=== PATIENT | female | born 1995 | race African-American/Black ===

== ENCOUNTER 2016-08-22 13:12 | Emergency (ER) | payer OTHER ==
[~2016-08-22] VITALS: Ht 154.9 cm; Wt 106.6 kg
[~2016-08-22 13:12] MED LIST: CIPROFLOXACIN500 M1 PO; CYCLOBENZAPRINE5 MG PO; NAPROSYN500 MG PO; NOHOMEMEDICATIONS; NORCO 5-325 TA1 EACH PO; PYRIDIUM200 MG PO
[2016-08-22 13:31] LABS: URINE BILIRUBIN NEGATIVE (Negative); URINE BLOOD NEGATIVE (Negative); URINE COLOR YELLOW; URINE GLUCOSE-RANDOM* NEGATIVE (Negative); URINE KETONES TRACE (Negative); URINE NITRITE NEGATIVE (Negative); URINE PROTEIN (DIPSTICK) NEGATIVE (Negative); URINE SPECIFIC GRAVITY >= 1.030 (1.003-1.035)
[2016-08-22 15:22] VITALS: BP 136/71
[2016-08-22] MEDS ORDERED: NAPROSYN500 M1 PO (15:37)
[2016-08-22] MEDS ORDERED: NORCO 5-325 TA1 EACH PO (15:52)
[2016-09-18] MEDS ORDERED: TESSALON PERLE100 MG PO (12:47)
[2016-09-18] MEDS ORDERED: ONDANSETRON HCL4 M2 PO (12:47)
[2016-09-18] MEDS ORDERED: IBUPROFEN 800800 M1 PO (12:47)
== END 2016-08-22 15:54 | disposition home or self-care (01) ==
LOC: ER 13:12
PROVIDERS: Physician Assistant
DX: N83.202 Unspecified ovarian cyst, left side (principal); F10.99 Alcohol use, unspecified with unspecified alcohol-induced disorder

== ENCOUNTER 2016-11-19 08:45 | Emergency (ER) | payer OTHER ==
[~2016-11-19] VITALS: Ht 180.3 cm; Wt 116.6 kg
[~2016-11-19 08:45] MED LIST changes: +IBUPROFEN 800800 M1 PO; +NAPROSYN500 M1 PO; +ONDANSETRON HCL4 M2 PO; +TESSALON PERLE100 MG PO
[2016-11-19 09:27] LABS: URINE BILIRUBIN NEGATIVE (Negative); URINE BLOOD TRACE (Negative); URINE COLOR YELLOW; URINE GLUCOSE-RANDOM* NEGATIVE (Negative); URINE KETONES NEGATIVE (Negative); URINE NITRITE NEGATIVE (Negative); URINE PROTEIN (DIPSTICK) TRACE (Negative); URINE SPECIFIC GRAVITY >= 1.030 (1.003-1.035)
[2016-11-19 09:36] LABS: SQUAMOUS >10 Many /LPF (0-3)
[2016-11-19 09:37] LABS: CASTS None Seen /LPF (None Seen); CRYSTALS None Seen /LPF (None Seen)
[2016-11-19 09:40] LABS: URINE RBC 3-10 Few /HPF (0-2)
[2016-11-19 09:40] LABS: ABSOLUTE NEUTROPHILS 4.7 thou/uL (1.4-8.2); BASOPHILS 0.8 % (0.0-2.0); EOSINOPHILS 2.4 % (0.0-3.0); HEMOGLOBIN 12.5 gm/dL (12.0-15.0); LYMPHOCYTES 29.3 % (24.0-44.0); MANUAL DIFF NO; MCH 30.5 pg (26.0-34.0); MCHC 34.9 g/dL (28.0-37.0); MCV 87.4 fL (80.0-100.0); MONOCYTES 7.4 % (1.0-8.0); PLATELET COUNT 192 thou/uL (150-400); POLYS 60.1 % (36.0-66.0); RBC 4.12 mil/uL (4.20-5.00); WBC 7.8 thou/uL (4.0-11.0)
[2016-11-19 09:55] LABS: ALBUMIN 3.2 g/dL (3.4-5.0); CALCIUM 8.7 mg/dL (8.5-10.1); CREATININE 0.8 mg/dL (0.6-1.0); DIRECT BILIRUBIN 0.1 mg/dL (<0.1-0.3); POTASSIUM 3.6 mmol/L (3.5-5.1); TOTAL BILIRUBIN 0.7 mg/dL (<0.1-1.0); TOTAL PROTEIN 6.7 g/dL (6.4-8.2)
[2016-11-19] MEDS ORDERED: IBUPROFEN 600600 M1 PO (11:53)
[2016-11-19] MEDS ORDERED: MACROBID 100 M100 M1 PO (13:08)
[2016-11-19] MEDS ORDERED: NAPROSYN500 MG PO (13:08)
[2016-11-19 13:09] VITALS: BP 109/64
== END 2016-11-19 13:12 | disposition home or self-care (01) ==
LOC: ER 08:45
PROVIDERS: Nurse Practitioner
DX: N39.0 Urinary tract infection, site not specified (principal)

== ENCOUNTER 2017-01-30 05:46 | Emergency (ER) | payer OTHER ==
[~2017-01-30] VITALS: Ht 180.3 cm; Wt 106.6 kg
[~2017-01-30 05:46] MED LIST changes: +IBUPROFEN 600600 M1 PO; +MACROBID 100 M100 M1 PO
[2017-01-30 06:08] LABS: URINE BILIRUBIN NEGATIVE (Negative); URINE BLOOD NEGATIVE (Negative); URINE COLOR YELLOW; URINE GLUCOSE-RANDOM* NEGATIVE (Negative); URINE KETONES NEGATIVE (Negative); URINE NITRITE NEGATIVE (Negative); URINE PROTEIN (DIPSTICK) NEGATIVE (Negative); URINE SPECIFIC GRAVITY >= 1.030 (1.003-1.035); URINE UROBILINOGEN 0.2 E.U./dl (0.2-1.0)
[2017-01-30 06:39] LABS: CASTS None Seen /LPF (None Seen); SQUAMOUS >10 Many /LPF (0-3)
[2017-01-30 06:40] LABS: CRYSTALS None Seen /LPF (None Seen); URINE RBC 0-2 Rare /HPF (0-2)
[2017-01-30] MEDS ORDERED: MACROBID 100 M100 M1 PO (06:51)
[2017-01-30] MEDS ORDERED: NORCO 5-325 TA1 EACH PO (06:51)
[2017-01-30 06:57] VITALS: BP 122/87
[2017-02-01 18:10] LABS: CHLAMYDIA TRACHOMATIS-PCR Negative (Negative); NEISSERIA GONORRHEA-PCR Negative (Negative)
== END 2017-01-30 06:51 | disposition home or self-care (01) ==
LOC: ER 05:46
PROVIDERS: Emergency Medicine
DX: N39.0 Urinary tract infection, site not specified (principal); F10.99 Alcohol use, unspecified with unspecified alcohol-induced disorder

== ENCOUNTER 2017-02-19 17:55 | Emergency (ER) | payer OTHER ==
[~2017-02-19] VITALS: Ht 175.3 cm; Wt 106.6 kg
[2017-02-19 17:55] VITALS: BP 124/78
[2017-02-19] MEDS ORDERED: COLACE100 MG PO (18:19)
[2017-02-19] MEDS ORDERED: ANUSOL-HC25 MG RECTAL (18:19)
== END 2017-02-19 18:28 | disposition home or self-care (01) ==
LOC: ER 17:55
DX: K64.4 Residual hemorrhoidal skin tags (principal); F10.99 Alcohol use, unspecified with unspecified alcohol-induced disorder

== ENCOUNTER 2017-05-13 17:27 | Emergency (ER) | payer OTHER ==
[~2017-05-13] VITALS: Ht 180.3 cm; Wt 108.9 kg
[~2017-05-13 17:27] MED LIST changes: +ANUSOL-HC25 MG RECTAL; +COLACE100 MG PO
[2017-05-13 17:35] VITALS: BP 130/79
[2017-05-13] MEDS ORDERED: KEFLEX500 MG PO (17:46)
[2017-05-13] MEDS ORDERED: CENTANY30 GM TOP (17:47)
== END 2017-05-13 18:25 | disposition home or self-care (01) ==
LOC: ER 17:27
DX: T23.272A Burn of second degree of left wrist, initial encounter (principal); F10.99 Alcohol use, unspecified with unspecified alcohol-induced disorder; X19.XXXA Contact with other heat and hot substances, initial encounter; Y93.89 Activity, other specified; Y92.89 Other specified places as the place of occurrence of the external cause; Y99.0 Civilian activity done for income or pay

== ENCOUNTER 2020-07-18 10:56 | Emergency (ER) | payer OTHER ==
[~2020-07-18] VITALS: Ht 180.3 cm; Wt 105.7 kg
[~2020-07-18 10:56] MED LIST changes: +CENTANY30 GM TOP; +KEFLEX500 MG PO
[2020-07-18] MEDS ORDERED: PROZAC20 MG PO (11:13)
[2020-07-18] MEDS ORDERED: VISTARIL 25 MG25 M1 PO (11:14)
[2020-07-18 11:36] LABS: URINE BILIRUBIN NEGATIVE (Negative); URINE BLOOD 3+ (Negative); URINE CLARITY CLEAR; URINE COLOR YELLOW; URINE GLUCOSE-RANDOM* NEGATIVE (Negative); URINE KETONES NEGATIVE (Negative); URINE LEUKOCYTES-REFLEX NEGATIVE (Negative); URINE NITRITE-REFLEX NEGATIVE (Negative); URINE PROTEIN (DIPSTICK) NEGATIVE (Negative); URINE SPECIFIC GRAVITY 1.025 (1.005-1.035)
[2020-07-18 11:51] LABS: SQUAMOUS 0-3 Few /LPF (0-3)
[2020-07-18 11:52] LABS: BACTERIA-REFLEX 1-9 Few /HPF (None Seen); CASTS None Seen /LPF (None Seen); CRYSTALS None Seen /LPF (None Seen); URINE RBC 3-10 Few /HPF (0-2); URINE WBC-REFLEX None Seen /HPF (0-5)
[2020-07-18] MEDS ORDERED: NAPROSYN500 MG PO (13:59)
[2020-07-18 14:02] VITALS: BP 131/86
== END 2020-07-18 14:02 | disposition home or self-care (01) ==
LOC: ER 10:56
PROVIDERS: Physician Assistant
DX: N94.6 Dysmenorrhea, unspecified (principal); Z79.899 Other long term (current) drug therapy

== ENCOUNTER 2021-03-22 14:46 | Emergency (ER) | payer OTHER ==
[~2021-03-22] VITALS: Ht 180.3 cm; Wt 115.7 kg
[~2021-03-22 14:46] MED LIST changes: +PROZAC20 MG PO; +VISTARIL 25 MG25 M1 PO
[2021-03-22] MEDS ORDERED: PROZAC40 MG PO (15:13)
[2021-03-22 15:27] LABS: URINE BILIRUBIN NEGATIVE (Negative); URINE BLOOD NEGATIVE (Negative); URINE CLARITY CLEAR; URINE COLOR YELLOW; URINE GLUCOSE-RANDOM* NEGATIVE (Negative); URINE KETONES NEGATIVE (Negative); URINE LEUKOCYTES-REFLEX NEGATIVE (Negative); URINE NITRITE-REFLEX NEGATIVE (Negative); URINE PROTEIN (DIPSTICK) NEGATIVE (Negative); URINE UROBILINOGEN 0.2 E.U./dl (0.2-1.0)
[2021-03-22 15:32] LABS: ABSOLUTE NEUTROPHILS 8.7 thou/uL (1.4-8.2); BASOPHILS 0.4 % (0.0-2.0); EOSINOPHILS 1.7 % (0.0-3.0); HEMATOCRIT 35.8 % (37.0-47.0); HEMOGLOBIN 11.8 gm/dL (12.0-15.0); LYMPHOCYTES 13.2 % (24.0-44.0); MCH 30.6 pg (26.0-34.0); MCHC 32.9 g/dL (28.0-37.0); MONOCYTES 6.7 % (1.0-8.0); PLATELET COUNT 205 thou/uL (150-400); RBC 3.85 mil/uL (4.20-5.00); RDW 14.4 % (10.5-14.5); WBC 11.2 thou/uL (4.0-11.0)
[2021-03-22 15:34] LABS: CALCIUM 8.6 mg/dL (8.5-10.1); POTASSIUM 4.3 mmol/L (3.5-5.1)
[2021-03-22 15:40] LABS: ALBUMIN 3.3 g/dL (3.4-5.0); TOTAL BILIRUBIN 0.7 mg/dL (0.2-1.0); TOTAL PROTEIN 7.1 g/dL (6.4-8.2)
[2021-03-22 16:13] VITALS: BP 112/72
== END 2021-03-22 16:51 | disposition home or self-care (01) ==
LOC: ER 14:46
PROVIDERS: Emergency Medicine
DX: M54.5 Low back pain (principal); K64.9 Unspecified hemorrhoids; Z79.899 Other long term (current) drug therapy

== ENCOUNTER 2021-04-06 21:07 | Emergency (ER) | payer OTHER ==
[~2021-04-06] VITALS: Ht 180.3 cm; Wt 106.6 kg
[~2021-04-06 21:07] MED LIST changes: +PROZAC40 MG PO
[2021-04-06 21:12] VITALS: BP 131/78
[2021-04-06] MEDS ORDERED: REXULTI0.25 MG PO (21:19)
[2021-04-06] MEDS ORDERED: AMOXICILLIN 50500 MG PO (21:35)
[2021-04-06] MEDS ORDERED: MEDROLDOSEPACK PO (21:38)
== END 2021-04-06 22:06 | disposition home or self-care (01) ==
LOC: ER 21:07
PROVIDERS: Nurse Practitioner Family
DX: H66.91 Otitis media, unspecified, right ear (principal); Z20.822 Contact with and (suspected) exposure to COVID-19; J02.9 Acute pharyngitis, unspecified; Z79.899 Other long term (current) drug therapy